=== PATIENT | female | born 1975 | race Hispanic/Latino ===

== ENCOUNTER 2016-09-18 18:51 | Inpatient (IN) | payer MEDICAID ==
[2016-09-18] MEDS ORDERED: ATROVENT IH ONE (20:25)
[2016-09-18] MEDS ORDERED: MAGNESIUM SULFATE 2GM/50ML 2 GM/50 ML BAG IV ONE (20:25)
[2016-09-18] MEDS ORDERED: XOPENEX IH ONE (20:25)
[2016-09-18] MEDS ORDERED: TESSALON PERLES PO ONE (20:26)
[2016-09-18 20:31] LABS: Hematocrit 35.4 % (30.3-42.9); Hemoglobin 10.9 gm/dl (10.1-14.3); Mean Corpuscular HGB Conc 31 % (30-34); Mean Corpuscular Volume 74 fl (79-97); Platelet Count 268 K/mm3 (140-440); Red Blood Count 4.78 M/mm3 (3.65-5.03); White Blood Count 16.6 K/mm3 (4.5-11.0)
[2016-09-18 20:57] LABS: Alanine Aminotransferase 12 units/L (7-56); Albumin 4.1 g/dL (3.9-5); Albumin/Globulin Ratio 1.3 %; Alkaline Phosphatase 73 units/L (35-129); Anion Gap 14 mmol/L; BUN/Creatinine Ratio 17.14; Blood Urea Nitrogen 12 mg/dL (7-17); Calcium 8.9 mg/dL (8.4-10.2); Carbon Dioxide 27 mmol/L (22-30); Chloride 97.8 mmol/L (98-107); Glucose 117 mg/dL (65-100); Potassium 4.5 mmol/L (3.6-5.0); Sodium 134 mmol/L (137-145); Total Protein 7.2 g/dL (6.3-8.2)
[2016-09-18 21:03] LABS: Mean Corpuscular Hemoglobin 23 pg (28-32)
[2016-09-18 21:04] LABS: INR 1.02 (0.87-1.13)
[2016-09-18 21:05] LABS: Partial Thromboplastin Time 32.6 Sec. (24.2-36.6)
--- NOTE | 2016-09-18 21:22 | Emergency Department Report ---
ED Shortness of Breath HPI - General Chief Complaint: Dyspnea/Respdistress Stated Complaint: EUGENE Time Seen by Provider: 09/18/16 20:00 Source: patient, EMS Mode of arrival: Stretcher Limitations: No Limitations - History of Present Illness Initial Comments: 40-year-old female with a past medical history of obesity, diabetes, asthma, and hypertension presents to the hospital complains of wheezing shortness breath since yesterday. Patient had intermittent right-sided sharp chest pain rated 6/10 intensity. Some increase with inspiration. Improved after receiving a breathing treatment in route to the hospital. Pt states she did at least 9 nebulized treatments at home prior to arrival without improvement but feels better after receiving Solu-Medrol and albuterol via EMS. No previous history of intubations. Dry cough reported occasional productive of clear sputum. No complaints of fever or calf tenderness. - Related Data Home Medications Medication Instructions Recorded Confirmed Last Taken Fluticasone/Salmeterol [Advair 1 puff IH BID 02/23/14 09/18/16 02/23/14 Diskus 250-50 mcg] 1 Gabapentin [Neurontin] 300 mg PO TID 02/23/14 09/18/16 02/23/14 1 Lisinopril [Zestril] 20 mg PO QDAY 02/23/14 09/18/16 02/23/14 1 metFORMIN [Glucophage] 500 mg PO AMHY 02/23/14 09/18/16 02/23/14 1 Previous Rx's Medication Instructions Recorded Last Taken Type ALBUTEROL Inhaler [ProAir HFA 2 puff IH QID PRN #1 inha 02/24/14 Unknown Rx Inhaler] ALBUTEROL NEB's [Proventil 0.083% 2.5 mg IH TID PRN #1 box 02/24/14 Unknown Rx NEBS] Famotidine [Pepcid] 20 mg PO BID #60 tablet 02/24/14 Unknown Rx Diazepam Tab [Valium] 5 mg PO Q8HR PRN #10 tablet 06/28/15 Unknown Rx Ibuprofen [Motrin] 800 mg PO Q8HR PRN #15 tablet 06/28/15 Unknown Rx Phenylephrine/Dm/Acetaminop/GG 20 ml PO Q4HR #180 liquid 06/28/15 Unknown Rx [Mucinex Zmgg-Pxp-Vucnvezimd Lq] Allergies Allergy/AdvReac Type Severity Reaction Status Date / Time codeine Allergy Hives Verified 09/18/16 19:35 Sulfa (Sulfonamide Allergy Hives Verified 09/18/16 19:35 Antibiotics) ED Review of Systems ROS: Stated complaint: EUGENE Other details as noted in HPI Comment: All other systems reviewed and negative Other: Constitutional: No fevers chills Eyes: No eye pain visual changes ENT: No ear pain or throat pain Neck: Denies pain Respiratory: as per hpi Cardiovascular: Denies palpitations, syncope GI: Denies abdominal pain, nausea, vomiting, diarrhea : Denies dysuria, urinary frequency, or urgency Musculoskeletal: Denies back pain Skin: Denies rash, lesions, erythema Neurologic: Denies headache, numbness, weakness Psychiatric: Denies suicidal ideation, hallucinations ED Past Medical Hx - Past Medical History Hx Hypertension: Yes Hx Diabetes: Yes Hx Asthma: Yes - Surgical History Additional Surgical History: abd hernia/ tubal ligation - Social History Smoking Status: Never Smoker Substance Use Type: None - Medications Home Medications: Home Medications Medication Instructions Recorded Confirmed Last Taken Type Fluticasone/Salmeterol [Advair 1 puff IH BID 02/23/14 09/18/16 02/23/14 History Diskus 250-50 mcg] 1 Gabapentin [Neurontin] 300 mg PO TID 02/23/14 09/18/16 02/23/14 History 1 Lisinopril [Zestril] 20 mg PO QDAY 02/23/14 09/18/16 02/23/14 History 1 metFORMIN [Glucophage] 500 mg PO AMHY 02/23/14 09/18/16 02/23/14 History 1 ALBUTEROL Inhaler [ProAir HFA 2 puff IH QID PRN #1 inha 02/24/14 09/18/16 Unknown Rx Inhaler] ALBUTEROL NEB's [Proventil 0.083% 2.5 mg IH TID PRN #1 box 02/24/14 09/18/16 Unknown Rx NEBS] Famotidine [Pepcid] 20 mg PO BID #60 tablet 02/24/14 09/18/16 Unknown Rx Diazepam Tab [Valium] 5 mg PO Q8HR PRN #10 tablet 06/28/15 09/18/16 Unknown Rx Ibuprofen [Motrin] 800 mg PO Q8HR PRN #15 tablet 06/28/15 09/18/16 Unknown Rx Phenylephrine/Dm/Acetaminop/GG 20 ml PO Q4HR #180 liquid 06/28/15 09/18/16 Unknown Rx [Mucinex Xryx-Kty-Vdpygfrqvg Lq] ED Physical Exam - General Limitations: No Limitations - Other Other exam information: General: No limitations, patient is alert in no acute distress Head exam: Atraumatic, normocephalic Eyes exam: Normal appearance, pupils equal reactive to light, extraocular movements intact ENT: Moist mucous membrane, normal oropharynx Neck exam: Normal inspection, full range of motion, no meningismus nontender Respiratory exam: Significant expiratory wheezing with fair air movement, mild tachypnea, no excessive muscle use Cardiovascular: Normal rate and rhythm, normal heart sounds Abdomen: Soft, nondistended, and nontender, with normal bowel sounds, no rebound, or guarding Extremity: Full range of motion normal inspection no deformity, no calf tenderness Back: Normal Inspection, full range of motion, no tenderness Neurologic: Alert, oriented x3, cranial nerves intact, no motor or sensory deficit Psychiatric: normal affect, normal mood Skin: Warm, dry, intact ED Course Vital Signs 09/18/16 09/18/16 09/18/16 19:23 20:41 20:55 Temperature 98.7 F Pulse Rate 116 H Pulse Rate [ 109 H 114 H Posterior] Respiratory 21 Rate Respiratory 27 H 24 Rate [Posterior ] Blood Pressure 139/66 Blood Pressure 139/66 [Right] O2 Sat by Pulse 94 Oximetry - Reevaluation(s) Reevaluation #1: 09/18/16 21:25 Additional Xopenex, Atrovent, and magnesium given with some improvement although patient states continues to have persistent wheezing ED Medical Decision Making - Lab Data Result diagrams: 09/18/16 20:14 09/18/16 20:14 Lab Results 09/18/16 09/18/16 09/18/16 Range/Units 20:14 20:14 20:14 WBC 16.6 H (4.5-11.0) K/mm3 RBC 4.78 (3.65-5.03) M/mm3 Hgb 10.9 (10.1-14.3) gm/dl Hct 35.4 (30.3-42.9) % MCV 74 L (79-97) fl MCH 23 L (28-32) pg MCHC 31 (30-34) % RDW 19.0 H (13.2-15.2) % Plt Count 268 (140-440) K/mm3 Seg Neutrophils % Window Treatment Installer PT 13.3 (12.2-14.9) Sec. INR 1.02 (0.87-1.13) APTT 32.6 (24.2-36.6) Sec. Sodium 134 L (137-145) mmol/L Potassium 4.5 (3.6-5.0) mmol/L Chloride 97.8 L (98-107) mmol/L Carbon Dioxide 27 (22-30) mmol/L Anion Gap 14 mmol/L BUN 12 (7-17) mg/dL Creatinine 0.7 (0.7-1.2) mg/dL Estimated GFR > 60 ml/min BUN/Creatinine Ratio 17.14 % Glucose 117 H (65-100) mg/dL Calcium 8.9 (8.4-10.2) mg/dL Total Bilirubin 0.30 (0.1-1.2) mg/dL AST 14 (5-40) units/L ALT 12 (7-56) units/L Alkaline Phosphatase 73 (35-129) units/L Total Protein 7.2 (6.3-8.2) g/dL Albumin 4.1 (3.9-5) g/dL Albumin/Globulin Ratio 1.3 % - EKG Data -: EKG Interpreted by Me (sinus tach 122) - Radiology Data Radiology results: image reviewed (chest x-ray: No acute findings) - Medical Decision Making Plan admit patient to the hospital for further treatment acute asthma exacerbation that continues despite aggressive treatment in the ED. - Differential Diagnosis pneumonia, bronchitis, CHF, PE Critical Care Time: No Critical care attestation.: If time is entered above; I have spent that time in minutes in the direct care of this critically ill patient, excluding procedure time. ED Disposition Clinical Impression: Obesity, Asthmatic bronchitis with acute exacerbation Disposition: OP ADMITTED IP TO THIS HOSP Is pt being admited?: Yes Time of Disposition: 21:22 (Dr river/hosp)
[2016-09-18 21:55] LABS: Basophils % (Manual) 0 % (0.0-1.8); Blastocytes % (Manual) 0 %
[2016-09-18 21:56] LABS: Anisocytosis 1+; Diff Status Complete; Hypochromasia 2+; Platelet Estimate Consistent w Auto; Poikilocytosis 1+
[2016-09-18] MEDS ORDERED: DUONEB 0.5 MG-3 MG/3 ML SOLN IH ONE (22:20)
--- NOTE | 2016-09-19 00:06 | History and Physical Report ---
History of Present Illness Date of examination: 09/18/16 Chief complaint: Shortness of breath History of present illness: Patient is a 40-year-old woman with a history of morbid obesity, type 2 diabetes mellitus, seizure disorder, hypertension and asthma presents with shortness breath and wheezing 1 day. Constant mildly intense worsening Shortness breath associated with nonproductive cough and wheezing. Coughing is intermittent with right-sided chest tenderness. Patient reports using 9 nebulized treatments at home prior to arrival without improvement but feels better after receiving Solu-Medrol and albuterol via EMS. No previous history of intubations. No complaints of fever, severe headaches. Patient has myraid of other symptoms centered around ventral hernia repair with mesh. Patient is being following by primary care Dr. Dr. Ej Akins regarding hernia mesh complications such as experiencing blackouts, seizures, bowel incontinence, abdominal pains, headaches associated with her ventral hernia mesh., etc.. Medications and Allergies Allergies Allergy/AdvReac Type Severity Reaction Status Date / Time codeine Allergy Hives Verified 09/18/16 19:35 Sulfa (Sulfonamide Allergy Hives Verified 09/18/16 19:35 Antibiotics) Home Medications Medication Instructions Recorded Confirmed Last Taken Type Fluticasone/Salmeterol [Advair 1 puff IH BID 02/23/14 09/18/16 02/23/14 History Diskus 250-50 mcg] 1 Gabapentin [Neurontin] 300 mg PO TID 02/23/14 09/18/16 02/23/14 History 1 Lisinopril [Zestril] 20 mg PO QDAY 02/23/14 09/18/16 02/23/14 History 1 metFORMIN [Glucophage] 500 mg PO AMHY 02/23/14 09/18/16 02/23/14 History 1 ALBUTEROL Inhaler [ProAir HFA 2 puff IH QID PRN #1 inha 02/24/14 09/18/16 Unknown Rx Inhaler] ALBUTEROL NEB's [Proventil 0.083% 2.5 mg IH TID PRN #1 box 02/24/14 09/18/16 Unknown Rx NEBS] Famotidine [Pepcid] 20 mg PO BID #60 tablet 02/24/14 09/18/16 Unknown Rx Diazepam Tab [Valium] 5 mg PO Q8HR PRN #10 tablet 06/28/15 09/18/16 Unknown Rx Ibuprofen [Motrin] 800 mg PO Q8HR PRN #15 tablet 06/28/15 09/18/16 Unknown Rx Phenylephrine/Dm/Acetaminop/GG 20 ml PO Q4HR #180 liquid 06/28/15 09/18/16 Unknown Rx [Mucinex Qknk-Mpl-Niiiggtlfx Lq] Review of Systems All systems: negative (as HPI and all other ROS reviewed and negative.) Exam - Physical Exam Narrative exam: GEN: Morbid obese NAD, AWAKE, ALERT, ORIENTATED 3 HEENT: NCAT, PERRL, EOMI, OP CLEAR NECK: SUPPLE, NO THYROMEGALY, NO JVD, NO LAD CVS: RRR, NORMAL S1S2 LUNGS/CHEST: Expiratory bilateral wheezing NORMAL CHEST EXPANSION B, GOOD AIR ENTRY B ABD: SOFT, NTND, GBS, NO REBOUND OR GUARDING EXT/SKIN: NO SIGNIFICANT EDEMA OR RASH MSK: FROM X 4 EXTREMITIES NEURO: CN 2-12 GROSSLY INTACT, NO FOCAL DEFICITS PSY: CALM - Constitutional Vitals: Temp Pulse Resp BP Pulse Ox 98.7 F 114 H 18 124/97 94 09/18/16 19:23 09/18/16 23:16 09/18/16 23:16 09/18/16 23:16 09/18/16 23:16 Results - Labs CBC & Chem 7: 09/18/16 20:14 09/18/16 20:14 Labs: Abnormal lab results 09/18/16 09/18/16 Range/Units 20:14 20:14 WBC 16.6 H (4.5-11.0) K/mm3 MCV 74 L (79-97) fl MCH 23 L (28-32) pg RDW 19.0 H (13.2-15.2) % Seg Neuts % (Manual) 93.0 H (40.0-70.0) % Lymphocytes % (Manual) 5.0 L (13.4-35.0) % Seg Neutrophils # Man 15.4 H (1.8-7.7) K/mm3 Lymphocytes # (Manual) 0.8 L (1.2-5.4) K/mm3 Sodium 134 L (137-145) mmol/L Chloride 97.8 L (98-107) mmol/L Glucose 117 H (65-100) mg/dL Assessment and Plan Patient is a 40-year-old woman with a history of morbid obesity, type 2 diabetes mellitus, seizure disorder, hypertension and asthma presents with shortness breath and wheezing 1 day. Constant mildly intense worsening Shortness breath associated with nonproductive cough and wheezing. Coughing is intermittent with right-sided chest tenderness. Patient reports using 9 nebulized treatments at home prior to arrival without improvement but feels better after receiving Solu-Medrol and albuterol via EMS. No previous history of intubations. No complaints of fever, severe headaches. Patient has myraid of other symptoms centered around ventral hernia repair with mesh. Patient is being following by primary care Dr. Dr. Ej Akins regarding hernia mesh complications such as experiencing blackouts, seizures, bowel incontinence, abdominal pains, headaches associated with her ventral hernia mesh., etc.. -Asthma exacerbation: IV steroids, nebulizer treatments -Diabetes mellitus2: Ordered sliding-scale -Hypertension: home med reconciliation -DVT prophylaxis: Subcutaneous heparin
[2016-09-19] MEDS ORDERED: D50W (25GM) IV PRN (00:10)
[2016-09-19] MEDS ORDERED: VALIUM PO PRN (00:11)
[2016-09-19] MEDS: PROVENTIL IH PRN (02:59)
[2016-09-19 05:08] LABS: Mean Corpuscular HGB Conc 31 % (30-34); Mean Corpuscular Volume 75 fl (79-97); Platelet Count 275 K/mm3 (140-440); Red Blood Count 4.87 M/mm3 (3.65-5.03); Red Cell Distribution Width 18.9 % (13.2-15.2); White Blood Count 15.6 K/mm3 (4.5-11.0)
[2016-09-19 05:17] LABS: Hematocrit 36.2 % (30.3-42.9); Hemoglobin 11.1 gm/dl (10.1-14.3)
[2016-09-19 05:18] LABS: Mean Corpuscular Hemoglobin 23 pg (28-32)
[2016-09-19 05:26] LABS: Anion Gap 16 mmol/L; BUN/Creatinine Ratio 18.57; Blood Urea Nitrogen 13 mg/dL (7-17); Carbon Dioxide 26 mmol/L (22-30); Chloride 99.9 mmol/L (98-107); Glucose 171 mg/dL (65-100); Potassium 4.9 mmol/L (3.6-5.0); Sodium 137 mmol/L (137-145)
--- NOTE | 2016-09-19 06:15 | Admit Criteria Form ---
Admission Criteria Documentation: ASTHMA Clinical Indications for Admission to Inpatient Care (Place 'X' for any and all applicable criteria): Admission is indicated for ANY ONE of the following (1)(2)(3)(4)(5): [ ]I. Absent or markedly diminished breath sounds (silent chest) [ ]II. Oxygen saturation < 92% [ ]III. PaCO2 = / > 42 mm Hg (5.6 kPa) [ ]IV. Peak expiratory flow rate < 40% of predicted or personal best after treatment. [ ]V. Peak expiratory flow rate < 33% of predicted or personal before after treatment [ ]. Change in mental status [ ]VII. Ventilatory support required [ ]VIII. PaO2 < 60 mm Hg (8.0 kPa) [ ]IX. Cyanosis [ ]X. Cardiac dysrhythmia (e.g., bradycardia) [ ]XI. Hemodynamic instability [ ]XII. Radiographic evidence of complication requiring inpatient treatment (e.g., pneumonia, pneumothorax) [X ]XIII. Inpatient admission required rather than observation care (also use Asthma: Observation Care guideline as appropriate) because of ANY ONE of the following: [X ]a) Respiratory finding that is severe or persistent (eg, dyspnea, tachypnea, accessory muscle use) [ ]b) Airflow measurements less than 60% of predicted or personal best that persist (e.g., over 24 hours) or worsen despite treatments [ ]c) Supplemental oxygen or respiratory treatments for over 24 hours that are performable only in acute inpatient setting [X ]d) Other condition, treatment or monitoring requiring inpatient admission. Extended stay beyond goal length of stay may be needed for (26)(27)(28): [ ]a) Severe respiratory failure (23) (29) (30) [ ]b) Secondary causes and complications (25) [ ]c) Status asthmaticus [ ]d) Chronic obstructive asthma [ ]e) Older patients (29) [ ]f) Slow resolution [ ]g) Clinically significant exacerbation of comorbidities (eg, luis. heart failure, atrial fibrillation) The original [facility] content created by [employer] has been revised. The portions of the content which have been revised are identified through the use of italic text or in bold, and [facility] [employer] has neither reviewed nor approved the modified material. All other unmodified content is copyright [facility] Please see references footnoted in the original [facility] edition 2016 Admission Criteria Met: Yes
[2016-09-19] MEDS: TESSALON PERLES PO SCH ×3 (07:06→22:20)
[2016-09-19] MEDS: NOVOLOG SUB-Q SCH ×4 (07:30→22:19)
--- NOTE | 2016-09-19 09:24 | XRay Report ---
AP CHEST: HISTORY: Dyspnea AP view of the chest demonstrates a normal mediastinal and cardiac contour with clear lungs and normal bony and soft tissue structures. IMPRESSION: Unremarkable AP chest.
[2016-09-19] MEDS ORDERED: NON-FORMULARY (Fluticasone/Salmeterol [Advair Diskus 250-50 Mcg] 1 PUFF) IH SCH (10:00)
[2016-09-19] MEDS: BROVANA NEBU IH SCH ×2 (10:08→21:24)
[2016-09-19] MEDS: PULMICORT IH SCH ×2 (10:20→21:24)
[2016-09-19] MEDS: DUONEB 0.5 MG-3 MG/3 ML SOLN IH SCH ×4 (10:21→21:27)
[2016-09-19] MEDS: ZESTRIL PO SCH (10:32)
[2016-09-19] MEDS: PEPCID PO SCH ×2 (10:32→22:21)
[2016-09-19] MEDS: GLUCOPHAGE PO SCH ×2 (10:33→18:14)
[2016-09-19] MEDS: NEURONTIN PO SCH ×3 (10:36→23:59)
--- NOTE | 2016-09-19 11:46 | Progress Note ---
Assessment and Plan Assessment and plan: Patient is a 40-year-old woman with a history of morbid obesity, type 2 diabetes mellitus, seizure disorder, hypertension and asthma presents with shortness breath and wheezing 1 day which was not relieved by her nebulizer treatment at home -Asthma exacerbation: IV steroids, nebulizer treatments and empiric antibiotics Acute Hypoxic respiratory failue continue oxygen supplementation, currently 90% on 3L oxygen. -Diabetes mellitus2: Optimize insulins, -Hypertension: Continue home medications seizure disorder Patient states that she hasn't had a seizure in over a month, she does not take any seizure medications. It is currently being monitored by her PCP DVT ppx lovenox History Interval history: She states that she feels somewhat better, she continues have shortness of breath, Exertion, Wheezing, Feeling Winded. She Notes That after She Gets Breathing Treatments She Feels Better, but A Few Hours Later She Started Being Short of Breath Again. She Does Feel That Overall Condition Has Improved Hospitalist Physical - Physical exam Narrative exam: General: Unable to speak in full sentences, obese HEENT: MMM, EOMI cardiac: S1-S2 heard lungs: Poor air entry, expiratory wheezing all throughout abdomen: soft, nontender, nondistended bowel sounds positive extremities: Trace bipedal edema Skin: no rash or lesion Neuro: no focal deficit Psych: appropriate behavior and mood, cognition intact - Constitutional Vitals: Temp Pulse Resp BP Pulse Ox 98.2 F 88 18 133/69 96 09/19/16 09:00 09/19/16 10:34 09/19/16 10:34 09/19/16 10:32 09/19/16 10:12 Results - Labs CBC & Chem 7: 09/19/16 04:42 09/19/16 04:42 Labs: Laboratory Last Values WBC 15.6 K/mm3 (4.5-11.0) H 09/19/16 04:42 RBC 4.87 M/mm3 (3.65-5.03) 09/19/16 04:42 Hgb 11.1 gm/dl (10.1-14.3) 09/19/16 04:42 Hct 36.2 % (30.3-42.9) 09/19/16 04:42 MCV 75 fl (79-97) L 09/19/16 04:42 MCH 23 pg (28-32) L 09/19/16 04:42 MCHC 31 % (30-34) 09/19/16 04:42 RDW 18.9 % (13.2-15.2) H 09/19/16 04:42 Plt Count 275 K/mm3 (140-440) 09/19/16 04:42 Add Manual Diff Complete 09/18/16 20:14 Total Counted 100 09/18/16 20:14 Seg Neutrophils % Charging Plug Placer 09/18/16 20:14 Seg Neuts % (Manual) 93.0 % (40.0-70.0) H 09/18/16 20:14 Band Neutrophils % 0 % 09/18/16 20:14 Lymphocytes % (Manual) 5.0 % (13.4-35.0) L 09/18/16 20:14 Reactive Lymphs % (Man) 0 % 09/18/16 20:14 Monocytes % (Manual) 1.0 % (0.0-7.3) 09/18/16 20:14 Eosinophils % (Manual) 1.0 % (0.0-4.3) 09/18/16 20:14 Basophils % (Manual) 0 % (0.0-1.8) 09/18/16 20:14 Metamyelocytes % 0 % 09/18/16 20:14 Myelocytes % 0 % 09/18/16 20:14 Promyelocytes % 0 % 09/18/16 20:14 Blast Cells % 0 % 09/18/16 20:14 Nucleated RBC % Not Reportable 09/18/16 20:14 Seg Neutrophils # Man 15.4 K/mm3 (1.8-7.7) H 09/18/16 20:14 Band Neutrophils # 0.0 K/mm3 09/18/16 20:14 Lymphocytes # (Manual) 0.8 K/mm3 (1.2-5.4) L 09/18/16 20:14 Abs React Lymphs (Man) 0.0 K/mm3 09/18/16 20:14 Monocytes # (Manual) 0.2 K/mm3 (0.0-0.8) 09/18/16 20:14 Eosinophils # (Manual) 0.2 K/mm3 (0.0-0.4) 09/18/16 20:14 Basophils # (Manual) 0.0 K/mm3 (0.0-0.1) 09/18/16 20:14 Metamyelocytes # 0.0 K/mm3 09/18/16 20:14 Myelocytes # 0.0 K/mm3 09/18/16 20:14 Promyelocytes # 0.0 K/mm3 09/18/16 20:14 Blast Cells # 0.0 K/mm3 09/18/16 20:14 WBC Morphology Not Reportable 09/18/16 20:14 Hypersegmented Neuts Not Reportable 09/18/16 20:14 Hyposegmented Neuts Not Reportable 09/18/16 20:14 Hypogranular Neuts Not Reportable 09/18/16 20:14 Smudge Cells Not Reportable 09/18/16 20:14 Toxic Granulation Not Reportable 09/18/16 20:14 Toxic Vacuolation Not Reportable 09/18/16 20:14 Dohle Bodies Not Reportable 09/18/16 20:14 Pelger-Huet Anomaly Not Reportable 09/18/16 20:14 Fernando Rods Not Reportable 09/18/16 20:14 Platelet Estimate Consistent w auto 09/18/16 20:14 Clumped Platelets Not Reportable 09/18/16 20:14 Plt Clumps, EDTA Not Reportable 09/18/16 20:14 Large Platelets Not Reportable 09/18/16 20:14 Giant Platelets Not Reportable 09/18/16 20:14 Platelet Satelliting Not Reportable 09/18/16 20:14 Plt Morphology Comment Not Reportable 09/18/16 20:14 RBC Morphology Not Reportable 09/18/16 20:14 Dimorphic RBCs Not Reportable 09/18/16 20:14 Polychromasia Not Reportable 09/18/16 20:14 Hypochromasia 2+ 09/18/16 20:14 Poikilocytosis 1+ 09/18/16 20:14 Anisocytosis 1+ 09/18/16 20:14 Microcytosis Not Reportable 09/18/16 20:14 Macrocytosis Not Reportable 09/18/16 20:14 Spherocytes Not Reportable 09/18/16 20:14 Pappenheimer Bodies Not Reportable 09/18/16 20:14 Sickle Cells Not Reportable 09/18/16 20:14 Target Cells Not Reportable 09/18/16 20:14 Tear Drop Cells Not Reportable 09/18/16 20:14 Ovalocytes Not Reportable 09/18/16 20:14 Helmet Cells Not Reportable 09/18/16 20:14 [place] Bodies Not Reportable 09/18/16 20:14 Archbold Rings Not Reportable 09/18/16 20:14 Thompson Cells Not Reportable 09/18/16 20:14 Bite Cells Not Reportable 09/18/16 20:14 Crenated Cell Not Reportable 09/18/16 20:14 Elliptocytes Not Reportable 09/18/16 20:14 Acanthocytes (Spur) Not Reportable 09/18/16 20:14 Rouleaux Not Reportable 09/18/16 20:14 Hemoglobin C Crystals Not Reportable 09/18/16 20:14 Schistocytes Not Reportable 09/18/16 20:14 Malaria parasites Not Reportable 09/18/16 20:14 Elpidio Bodies Not Reportable 09/18/16 20:14 Hem Pathologist Commnt No 09/18/16 20:14 PT 13.3 Sec. (12.2-14.9) 09/18/16 20:14 INR 1.02 (0.87-1.13) 09/18/16 20:14 APTT 32.6 Sec. (24.2-36.6) 09/18/16 20:14 Sodium 137 mmol/L (137-145) 09/19/16 04:42 Potassium 4.9 mmol/L (3.6-5.0) 09/19/16 04:42 Chloride 99.9 mmol/L (98-107) 09/19/16 04:42 Carbon Dioxide 26 mmol/L (22-30) 09/19/16 04:42 Anion Gap 16 mmol/L 09/19/16 04:42 BUN 13 mg/dL (7-17) 09/19/16 04:42 Creatinine 0.7 mg/dL (0.7-1.2) 09/19/16 04:42 Estimated GFR > 60 ml/min 09/19/16 04:42 BUN/Creatinine Ratio 18.57 % 09/19/16 04:42 Glucose 171 mg/dL (65-100) H 09/19/16 04:42 POC Glucose 169 (70-105) H 09/19/16 08:21 Calcium 9.0 mg/dL (8.4-10.2) 09/19/16 04:42 Total Bilirubin 0.30 mg/dL (0.1-1.2) 09/18/16 20:14 AST 14 units/L (5-40) 09/18/16 20:14 ALT 12 units/L (7-56) 09/18/16 20:14 Alkaline Phosphatase 73 units/L (35-129) 09/18/16 20:14 Total Protein 7.2 g/dL (6.3-8.2) 09/18/16 20:14 Albumin 4.1 g/dL (3.9-5) 09/18/16 20:14 Albumin/Globulin Ratio 1.3 % 09/18/16 20:14
[2016-09-19] MEDS ORDERED: ZITHROMAX PO ONE (12:00)
[2016-09-19] MEDS ORDERED: HEPARIN SUB-Q SCH (22:00)
[2016-09-19] MEDS: LOVENOX SUB-Q SCH (22:18)
[2016-09-20] MEDS: TESSALON PERLES PO SCH ×3 (05:29→22:03)
[2016-09-20] MEDS: NOVOLOG SUB-Q SCH ×3 (08:04→18:26)
[2016-09-20] MEDS: GLUCOPHAGE PO SCH ×2 (08:05→17:08)
[2016-09-20] MEDS: NEURONTIN PO SCH ×3 (08:42→22:02)
[2016-09-20] MEDS: DUONEB 0.5 MG-3 MG/3 ML SOLN IH SCH ×3 (09:11→19:50)
[2016-09-20] MEDS: PULMICORT IH SCH ×2 (09:12→19:49)
[2016-09-20] MEDS: BROVANA NEBU IH SCH ×2 (09:12→19:49)
[2016-09-20] MEDS: ZESTRIL PO SCH (09:51)
[2016-09-20] MEDS: PEPCID PO SCH ×2 (09:51→22:03)
[2016-09-20] MEDS: ZITHROMAX PO SCH (09:51)
--- NOTE | 2016-09-20 14:31 | Progress Note ---
Assessment and Plan Assessment and plan: Patient is a 40-year-old woman with a history of morbid obesity, type 2 diabetes mellitus, seizure disorder, hypertension and asthma presents with shortness breath and wheezing 1 day which was not relieved by her nebulizer treatment at home -Asthma exacerbation: IV steroids, nebulizer treatments and empiric antibiotics Acute Hypoxic respiratory failue continue oxygen supplementation, currently 90% on 3L oxygen. -Diabetes mellitus2: Optimize insulins, -Hypertension: Continue home medications seizure disorder Patient states that she hasn't had a seizure in over a month, she does not take any seizure medications. It is currently being monitored by her PCP DVT ppx lovenox History Interval history: She states that she feels somewhat better, she continues have shortness of breath, Exertion, Wheezing, Feeling Winded. She Notes That after She Gets Breathing Treatments She Feels Better, but A Few Hours Later She Started Being Short of Breath Again. She Does Feel That Overall Condition Has Improved Hospitalist Physical - Physical exam Narrative exam: General: Unable to speak in full sentences, obese HEENT: MMM, EOMI cardiac: S1-S2 heard lungs: Poor air entry, expiratory wheezing all throughout abdomen: soft, nontender, nondistended bowel sounds positive extremities: Trace bipedal edema Skin: no rash or lesion Neuro: no focal deficit Psych: appropriate behavior and mood, cognition intact - Constitutional Vitals: Temp Pulse Resp BP Pulse Ox 98.4 F 110 H 18 126/76 95 09/20/16 08:00 09/20/16 09:20 09/20/16 09:20 09/20/16 09:51 09/20/16 09:24 Results - Labs CBC & Chem 7: 09/19/16 04:42 09/19/16 04:42 Labs: Laboratory Last Values WBC 15.6 K/mm3 (4.5-11.0) H 09/19/16 04:42 RBC 4.87 M/mm3 (3.65-5.03) 09/19/16 04:42 Hgb 11.1 gm/dl (10.1-14.3) 09/19/16 04:42 Hct 36.2 % (30.3-42.9) 09/19/16 04:42 MCV 75 fl (79-97) L 09/19/16 04:42 MCH 23 pg (28-32) L 09/19/16 04:42 MCHC 31 % (30-34) 09/19/16 04:42 RDW 18.9 % (13.2-15.2) H 09/19/16 04:42 Plt Count 275 K/mm3 (140-440) 09/19/16 04:42 Add Manual Diff Complete 09/18/16 20:14 Total Counted 100 09/18/16 20:14 Seg Neutrophils % Percussion Instructor 09/18/16 20:14 Seg Neuts % (Manual) 93.0 % (40.0-70.0) H 09/18/16 20:14 Band Neutrophils % 0 % 09/18/16 20:14 Lymphocytes % (Manual) 5.0 % (13.4-35.0) L 09/18/16 20:14 Reactive Lymphs % (Man) 0 % 09/18/16 20:14 Monocytes % (Manual) 1.0 % (0.0-7.3) 09/18/16 20:14 Eosinophils % (Manual) 1.0 % (0.0-4.3) 09/18/16 20:14 Basophils % (Manual) 0 % (0.0-1.8) 09/18/16 20:14 Metamyelocytes % 0 % 09/18/16 20:14 Myelocytes % 0 % 09/18/16 20:14 Promyelocytes % 0 % 09/18/16 20:14 Blast Cells % 0 % 09/18/16 20:14 Nucleated RBC % Not Reportable 09/18/16 20:14 Seg Neutrophils # Man 15.4 K/mm3 (1.8-7.7) H 09/18/16 20:14 Band Neutrophils # 0.0 K/mm3 09/18/16 20:14 Lymphocytes # (Manual) 0.8 K/mm3 (1.2-5.4) L 09/18/16 20:14 Abs React Lymphs (Man) 0.0 K/mm3 09/18/16 20:14 Monocytes # (Manual) 0.2 K/mm3 (0.0-0.8) 09/18/16 20:14 Eosinophils # (Manual) 0.2 K/mm3 (0.0-0.4) 09/18/16 20:14 Basophils # (Manual) 0.0 K/mm3 (0.0-0.1) 09/18/16 20:14 Metamyelocytes # 0.0 K/mm3 09/18/16 20:14 Myelocytes # 0.0 K/mm3 09/18/16 20:14 Promyelocytes # 0.0 K/mm3 09/18/16 20:14 Blast Cells # 0.0 K/mm3 09/18/16 20:14 WBC Morphology Not Reportable 09/18/16 20:14 Hypersegmented Neuts Not Reportable 09/18/16 20:14 Hyposegmented Neuts Not Reportable 09/18/16 20:14 Hypogranular Neuts Not Reportable 09/18/16 20:14 Smudge Cells Not Reportable 09/18/16 20:14 Toxic Granulation Not Reportable 09/18/16 20:14 Toxic Vacuolation Not Reportable 09/18/16 20:14 Dohle Bodies Not Reportable 09/18/16 20:14 Pelger-Huet Anomaly Not Reportable 09/18/16 20:14 Fernando Rods Not Reportable 09/18/16 20:14 Platelet Estimate Consistent w auto 09/18/16 20:14 Clumped Platelets Not Reportable 09/18/16 20:14 Plt Clumps, EDTA Not Reportable 09/18/16 20:14 Large Platelets Not Reportable 09/18/16 20:14 Giant Platelets Not Reportable 09/18/16 20:14 Platelet Satelliting Not Reportable 09/18/16 20:14 Plt Morphology Comment Not Reportable 09/18/16 20:14 RBC Morphology Not Reportable 09/18/16 20:14 Dimorphic RBCs Not Reportable 09/18/16 20:14 Polychromasia Not Reportable 09/18/16 20:14 Hypochromasia 2+ 09/18/16 20:14 Poikilocytosis 1+ 09/18/16 20:14 Anisocytosis 1+ 09/18/16 20:14 Microcytosis Not Reportable 09/18/16 20:14 Macrocytosis Not Reportable 09/18/16 20:14 Spherocytes Not Reportable 09/18/16 20:14 Pappenheimer Bodies Not Reportable 09/18/16 20:14 Sickle Cells Not Reportable 09/18/16 20:14 Target Cells Not Reportable 09/18/16 20:14 Tear Drop Cells Not Reportable 09/18/16 20:14 Ovalocytes Not Reportable 09/18/16 20:14 Helmet Cells Not Reportable 09/18/16 20:14 Reeves-[place] Bodies Not Reportable 09/18/16 20:14 [place] Rings Not Reportable 09/18/16 20:14 Sherin Cells Not Reportable 09/18/16 20:14 Bite Cells Not Reportable 09/18/16 20:14 Crenated Cell Not Reportable 09/18/16 20:14 Elliptocytes Not Reportable 09/18/16 20:14 Acanthocytes (Spur) Not Reportable 09/18/16 20:14 Rouleaux Not Reportable 09/18/16 20:14 Hemoglobin C Crystals Not Reportable 09/18/16 20:14 Schistocytes Not Reportable 09/18/16 20:14 Malaria parasites Not Reportable 09/18/16 20:14 Elpidio Bodies Not Reportable 09/18/16 20:14 Hem Pathologist Commnt No 09/18/16 20:14 PT 13.3 Sec. (12.2-14.9) 09/18/16 20:14 INR 1.02 (0.87-1.13) 09/18/16 20:14 APTT 32.6 Sec. (24.2-36.6) 09/18/16 20:14 Sodium 137 mmol/L (137-145) 09/19/16 04:42 Potassium 4.9 mmol/L (3.6-5.0) 09/19/16 04:42 Chloride 99.9 mmol/L (98-107) 09/19/16 04:42 Carbon Dioxide 26 mmol/L (22-30) 09/19/16 04:42 Anion Gap 16 mmol/L 09/19/16 04:42 BUN 13 mg/dL (7-17) 09/19/16 04:42 Creatinine 0.7 mg/dL (0.7-1.2) 09/19/16 04:42 Estimated GFR > 60 ml/min 09/19/16 04:42 BUN/Creatinine Ratio 18.57 % 09/19/16 04:42 Glucose 171 mg/dL (65-100) H 09/19/16 04:42 POC Glucose 164 (70-105) H 09/20/16 11:43 Calcium 9.0 mg/dL (8.4-10.2) 09/19/16 04:42 Total Bilirubin 0.30 mg/dL (0.1-1.2) 09/18/16 20:14 AST 14 units/L (5-40) 09/18/16 20:14 ALT 12 units/L (7-56) 09/18/16 20:14 Alkaline Phosphatase 73 units/L (35-129) 09/18/16 20:14 Total Protein 7.2 g/dL (6.3-8.2) 09/18/16 20:14 Albumin 4.1 g/dL (3.9-5) 09/18/16 20:14 Albumin/Globulin Ratio 1.3 % 09/18/16 20:14
[2016-09-20] MEDS: LOVENOX SUB-Q SCH (22:03)
[2016-09-21] MEDS: DUONEB 0.5 MG-3 MG/3 ML SOLN IH SCH ×4 (00:21→16:54)
[2016-09-21] MEDS: PROVENTIL IH PRN (00:58)
[2016-09-21] MEDS: TESSALON PERLES PO SCH ×2 (06:42→13:35)
[2016-09-21] MEDS: ZESTRIL PO SCH (09:11)
[2016-09-21] MEDS: PEPCID PO SCH (09:11)
[2016-09-21] MEDS: NOVOLOG SUB-Q SCH ×3 (09:12→12:25)
[2016-09-21] MEDS: GLUCOPHAGE PO SCH (09:13)
[2016-09-21] MEDS: ZITHROMAX PO SCH (09:29)
--- NOTE | 2016-09-21 09:39 | Discharge Summary ---
Providers - Providers Date of Admission: 09/19/16 05:15 Attending physician: ESTUARDO LOZA MD Primary care physician: STEEL BUFFER Hospitalization Condition: Stable Hospital course: Patient is a 40-year-old woman with a history of morbid obesity, type 2 diabetes mellitus, seizure disorder, hypertension and asthma presents with shortness breath and wheezing 1 day which was not relieved by her nebulizer treatment at home. She was treated with IV steroids and nebulizers and empiric antibiotics, she received oxygen supplementation and chest PT. She clinically improved and was weaned off oxygen prior to discharge. Chest continued on her home medications for hypertension and she was treated with insulins for diabetes. She was also counseled on lifestyle modification for her morbid obesity, but she said she was already on a regimen had already lost a significant amount of weight. She plans to continue her weight loss Discharge diagnoses -Asthma exacerbation: Acute Hypoxic respiratory failure -Diabetes mellitus2: -Hypertension: Morbid obesity Disposition: DISCHARGED TO HOME OR SELFCARE Time spent for discharge: 35 minutes Core Measure Documentation - Palliative Care Palliative Care/ Comfort Measures: Not Applicable - Core Measures Any of the following diagnoses?: none Exam - Constitutional Vitals: Temp Pulse Resp BP Pulse Ox 99.6 F 95 H 20 134/77 92 09/21/16 00:00 09/21/16 00:40 09/21/16 00:40 09/21/16 00:00 09/21/16 00:00 General appearance: Present: no acute distress, well-nourished - EENT Eyes: Present: PERRL ENT: hearing intact, clear oral mucosa - Neck Neck: Present: supple, normal ROM - Respiratory Respiratory effort: normal Respiratory: bilateral: CTA - Cardiovascular Heart Sounds: Present: S1 & S2. Absent: rub, click - Extremities Extremities: pulses symmetrical, No edema Peripheral Pulses: within normal limits - Abdominal General gastrointestinal: Present: soft, non-tender, non-distended, normal bowel sounds Female genitourinary: Present: normal - Integumentary Integumentary: Present: clear, warm, dry - Musculoskeletal Musculoskeletal: gait normal, strength equal bilaterally - Psychiatric Psychiatric: appropriate mood/affect, intact judgment & insight - Neurologic Neurologic: CNII-XII intact, moves all extremities Plan Follow up with: PRIMARY CARE, [Primary Care Provider] - 3-5 Days Prescriptions: ALBUTEROL Inhaler [ProAir HFA Inhaler] 2 puff IH QID PRN #1 inha PRN Reason: Shortness Of Breath ALBUTEROL NEB's [Proventil 0.083% NEBS] 2.5 mg IH TID PRN #1 box PRN Reason: Wheezing Azithromycin [Zithromax TAB] 250 mg PO QDAY #4 tablet Diazepam Tab [Valium] 5 mg PO Q8HR PRN #10 tablet PRN Reason: Pain Famotidine [Pepcid] 20 mg PO BID #60 tablet Fluticasone/Salmeterol [Advair Diskus 250-50 mcg] 1 puff IH BID #1 blst.w.dev Gabapentin [Neurontin] 300 mg PO Q8HR #90 capsule Lisinopril [Zestril TAB] 20 mg PO QDAY #30 tablet metFORMIN [Glucophage] 500 mg PO AMHY #60 tablet Phenylephrine/Dm/Acetaminop/GG [Mucinex Vsjk-Sro-Udwjxoszze Lq] 20 ml PO Q4HR # 180 liquid Prednisone [predniSONE 10 mg (6-Day Pack, 21 Tabs)] 10 mg PO .TAPER #1 tab.ds.pk
[2016-09-21] MEDS: BROVANA NEBU IH SCH (09:49)
[2016-09-21] MEDS: PULMICORT IH SCH (10:10)
[2016-09-21] MEDS: NEURONTIN PO SCH (13:36)
[2016-09-21 15:03] VITALS: BP 140/71
== END 2016-09-21 15:40 | disposition home or self-care (01) | DRG 189 ==
LOC: ED 18:51 → 3A 09-19 05:15
PROVIDERS: ADMIT Internal Medicine; ATTEND Internal Medicine
DX: J96.01 Acute respiratory failure with hypoxia (principal); J45.901 Unspecified asthma with (acute) exacerbation; E11.9 Type 2 diabetes mellitus without complications; I10 Essential (primary) hypertension; E66.01 Morbid (severe) obesity due to excess calories; G40.909 Epilepsy, unspecified, not intractable, without status epilepticus; Z68.41 Body mass index [BMI] 40.0-44.9, adult; Z88.2 Allergy status to sulfonamides; Z88.6 Allergy status to analgesic agent; Z71.3 Dietary counseling and surveillance
CPT/HCPCS: 36415; 71010; 80048; 80053; 82962; 85007; 85025; 85027; 85610; 85730; 93005; 93010; 94640; 94760; 96374; J1650; J1815; J2930; J3475

== ENCOUNTER 2018-12-25 10:12 | Emergency (ER) | payer MEDICAID ==
[2018-12-25 10:43] VITALS: BP 158/79
[2018-12-25] MEDS ORDERED: DECADRON IM ONE (11:10)
[2018-12-25] MEDS ORDERED: BICILLIN L-A IM ONE (11:10)
--- NOTE | 2018-12-25 11:31 | Emergency Department Report ---
Minor Respiratory - HPI Chief Complaint: Sore Throat Stated Complaint: THROAT PAIN/SINUS/COUGH/HEADACHE Time Seen by Provider: 12/25/18 11:01 Duration: 3 Days Pain Location: Throat, Nose Severity: mild Minor Respiratory: Yes Rhinorrhea, Yes Sore Throat, Yes Able to Tolerate Fluids, Yes Sick Contacts, Yes Shortness of Breath, No Ear Pain, No Cough, No Hemoptysis, No Chest Pain, No Fever Other History: Lavern is a very pleasant 43-year-old female with history of asthma who presents with sore throat and stuffy nose and wheezing. Several sick contacts at home including her children. No fever. Mild symptoms. Symptoms began 2-3 days prior to arrival today. ED Review of Systems ROS: Stated complaint: THROAT PAIN/SINUS/COUGH/HEADACHE Other details as noted in HPI Constitutional: denies: fever, malaise ENT: throat pain, congestion Respiratory: shortness of breath, wheezing Cardiovascular: denies: chest pain Gastrointestinal: denies: abdominal pain, nausea, vomiting Skin: denies: rash, lesions Neurological: denies: headache ED Past Medical Hx - Past Medical History Previous Medical History?: Yes Hx Hypertension: Yes Hx Heart Attack/AMI: No Hx Congestive Heart Failure: No Hx Diabetes: Yes Hx Deep Vein Thrombosis: No Hx Pulmonary Embolism: No Hx Liver Disease: No Hx Arthritis: No Hx Seizures: Yes Hx Asthma: Yes Hx COPD: No Hx Tuberculosis: No Hx Dementia: No Hx HIV: No - Surgical History Hx Coronary Stent: No Hx Open Heart Surgery: No Hx Pacemaker: No Hx Internal Defibrillator: No Hx Cholecystectomy: No Hx Appendectomy: No Hx Breast Surgery: No Additional Surgical History: abd hernia/ tubal ligation - Social History Smoking Status: Former Smoker Substance Use Type: None - Medications Home Medications: Home Medications Medication Instructions Recorded Confirmed Last Taken Type ALBUTEROL Inhaler (OR & NICU) 2 puff IH QID PRN #1 inha 08/12/18 Unknown Rx [ProAir HFA Inhaler] Fluticasone/Salmeterol [Advair 1 each IH BID #1 blst.w.dev 08/12/18 Unknown Rx 250-50 Diskus] Gabapentin [Neurontin] 300 mg PO Q8HR #30 capsule 08/12/18 Unknown Rx Ipratropium/Albuterol Sulfate 1 ampul IH Q8HR #90 ampul.neb 08/12/18 Unknown Rx [DUONEB *Not for PRN Use*] Prednisone [predniSONE 10 mg 10 mg PO .TAPER #1 tab.ds.pk 08/12/18 Unknown Rx (6-Day Pack, 21 Tabs)] metFORMIN [Glucophage] 1,000 mg PO BID #60 tablet 08/12/18 Unknown Rx predniSONE [Deltasone] 3 tab PO QDAY 3 Days #9 tab 12/25/18 Unknown Rx Minor Respiratory Exam - Exam General: Vital signs noted. No distress. Alert and acting appropriately. Lavern appears well. Normal voice. On exam: Exudative pharyngitis with erythematous tonsils and exudates symmetric Faint wheezes on auscultation. HEENT: Yes Pharyngeal Erythema, Yes Pharyngeal Exudates, Yes Moist Mucous Membranes, No Rhinorrhea, No Conjuctival Injection Neck: Yes Supple, No Adenopathy Lungs: Yes Good Air Exchange, Yes Wheezes, No Ronchi, No Stridor, No Cough, No Labored Respirations, No Retractions, No Use of Accessory Muscles, No Other Abnormal Lung Sounds Heart: Yes Regular, No Murmur Abdomen: Yes Normal Bowel Sounds, No Tenderness, No Peritoneal Signs Skin: No Rash, No Edema Neurologic: Alert and oriented, no deficits. Musculoskeletal: Unremarkable. ED Course Vital Signs 12/25/18 10:39 Temperature 98.7 F Pulse Rate 98 H Respiratory 22 Rate Blood Pressure 158/79 O2 Sat by Pulse 94 Oximetry ED Medical Decision Making - Medical Decision Making Streptococcal pharyngitis,with mild asthma exacerbation. Treated with Bicillin and Decadron in the emergency department. Prescribed prednisone burst therapy for asthma treatment. Critical care attestation.: If time is entered above; I have spent that time in minutes in the direct care of this critically ill patient, excluding procedure time. ED Disposition Clinical Impression: Strep throat, Asthma attack Disposition: DC-01 TO HOME OR SELFCARE Is pt being admited?: No Does the pt Need Aspirin: No Condition: Stable Instructions: Strep Throat (ED) Prescriptions: predniSONE [Deltasone] 3 tab PO QDAY 3 Days #9 tab Referrals: PANFILO ROMO MD [Primary Care Provider] - 3-5 Days
== END 2018-12-25 11:38 | disposition home or self-care (01) ==
LOC: ED 10:12
DX: J45.901 Unspecified asthma with (acute) exacerbation (principal); J02.0 Streptococcal pharyngitis; I10 Essential (primary) hypertension; E11.9 Type 2 diabetes mellitus without complications; Z98.51 Tubal ligation status; Z87.891 Personal history of nicotine dependence; Z79.899 Other long term (current) drug therapy; Z88.2 Allergy status to sulfonamides; Z88.6 Allergy status to analgesic agent
CPT/HCPCS: 96372; 99282; J0561; J1100